=== PATIENT | female | born 1935 | race Caucasian/White ===

== ENCOUNTER 2020-07-12 21:29 | Inpatient (IN) | payer MEDICAID, SELFPAY ==
[~2020-07-12] VITALS: Ht 152.4 cm; Wt 54.4 kg
[2020-07-12 21:58] VITALS: BP 119/88
--- NOTE | 2020-07-12 22:02 | NUR ---
TO LOBBY A/W BED VIA W/C
--- NOTE | 2020-07-12 22:20 | NUR ---
85 Y/O FEMALE BIB DAUGHTER IN LAW VIA W/C ASSIST FOR C/O "BLISTERS" ON BUTTOCKS, SACRAL, R & L FOOTS. ON ASSESMENT PT WAS NOTED WITH MULTIPLE PRESSURE SORES ON BUTTOCKS, SACRAL, R & L FOOTS, PICTURES WERE TAKEN REFER TO WOUND DOCUMENTATION. PER FABIAN NGUYEN SCALE PAIN 6/10. FACIAL GRIMACE NOTED ON MOVEMENT. UNABLE TO AMBULATE. PT PLACED ON BED WITH EMT RAI. BED LOCKED AND IN LOWEST POSITION. PMHX: OSTEOPOROSIS & R HIP FRACTURE 1 YEAR AGO. NKA PER DAUGHTER IN LAW
--- NOTE | 2020-07-12 23:00 | NUR ---
WOUND CARE COMPLETED. APPLIED DRESSINGS TO ALL AREAS.
[2020-07-13] MEDS ORDERED: MORPHINE SULFATE 2 MG/ML SYR IVP ONE (00:05)
[2020-07-13] MEDS ORDERED: ONDANSETRON 4 MG/2 ML VIAL IVP ONE (00:05)
[2020-07-13] MEDS ORDERED: NACL 0.9% 1,000 ML IV ONE ×2 (00:05→03:00)
[2020-07-13] MEDS ORDERED: CLINDAMYCIN 300 MG in DEXTROSE 5% 50 ML IV ONE (00:05)
[2020-07-13] MEDS ORDERED: CLINDAMYCIN 600 MG/4 ML VIAL ONE (00:18)
--- NOTE | 2020-07-13 00:28 | NUR ---
.LAB AT BEDSIDE FOR BLOOD DRAW
--- NOTE | 2020-07-13 00:30 | NUR ---
24 G IV SITE ESTABLISHED TO L HAND, SITE WAS PATENT FLUSHED WITH 10 ML OF 0.9% NS. NO INFILTARTION OR SWELLING NOTED.
[2020-07-13 00:31] LABS: HEMATOCRIT 39.8 % (36-48); HEMOGLOBIN 12.7 g/dL (12.0-16.0); MEAN CORPUSCULAR HEMOGLOBIN 28 pg (27-31); MEAN CORPUSCULAR HGB CONC 32 g/dL (33-37); MEAN CORPUSCULAR VOLUME 88.4 fL (80-94); PLATELET COUNT (AUTO) 329 K/uL (140-450); RED CELL DISTRIBUTION WIDTH 14.9 % (11.6-13.7); WHITE BLOOD COUNT (AUTO) 22.7 K/uL (4.8-10.8)
[2020-07-13 00:51] LABS: ALBUMIN 2.8 g/dL (3.4-5.0); ANION GAP 9.6 (8-16); ASPARTATE AMINOTRANSFERASE 19 U/L (15-37); CARBON DIOXIDE 28.6 mmol/L (21-32); CHLORIDE 107 mmol/L (98-107); GLUCOSE 118 mg/dL (74-106); POTASSIUM 4.2 mmol/L (3.5-5.1); SODIUM SERUM 141 mmol/L (136-145); TOTAL BILIRUBIN 0.5 mg/dL (0.0-1.0); UREA NITROGEN, BLOOD 20 mg/dL (7-18)
--- NOTE | 2020-07-13 01:12 | NUR ---
RECEIVED CONTACT INFO FROM DAUGHTER IN LAW (EMILY GUEVARA) , ROSEY GUEVARA (DAUGHTER) PER DAUGHTER IN LAW BEST PERSON TO CONTACT. SON (CADE GUEVARA) . DAUGHTER IN LAW TOOK PT'S W/C, BLANKETS AND DRESS. DENTURES LEFT WITH PATIENT.
[2020-07-13 01:17] LABS: LYMPHOCYTES % (MANUAL) 6 % (20-46); MONOCYTES % (MANUAL) 4 % (5-12)
[2020-07-13] MEDS ORDERED: NACL 0.9% 500 ML IV ONE ×2 (01:35→02:45)
[2020-07-13] MEDS ORDERED: VANCOMYCIN 1,000 MG in DEXTROSE 5% 250 ML IV ONE (01:35)
--- NOTE | 2020-07-13 02:15 | NUR ---
PT LAYING IN BED IN NO ACUTE DISTRESS NOTED. BREATHING EVEN AND UNLABORED EVIDENCE BY RISE AND FALL OF CHEST WALL. ON CARDIAC MONITORING, BP MONITORING, AND PULSE OXIMETRY. BED LOCKED AND IN LOWEST POSITION.
[2020-07-13] MEDS ORDERED: VANCOMYCIN 1,000 MG VIAL ONE (02:49)
[2020-07-13] MEDS ORDERED: NACL 0.9% 1,000 ML IV SCH ×2 (03:00→07:30)
--- NOTE | 2020-07-13 03:11 | NUR ---
LAURE ANTIGEN SWAB COLLECTED AND SENT LAB.
--- NOTE | 2020-07-13 04:35 | NUR ---
PT PERINEAL CARE DONE, SKIN WAS LEFT CLEAN AND DRY. CHANGED PT BRIEF, SHEETS AND GOWN. PROVIDED NEW BLANKETS AND ADJUSTED HOB TO A COMFORTABLE POSITION.
--- NOTE | 2020-07-13 06:45 | NUR ---
CALLED ROSEY GUEVARA TO OBTAIN CURRENT HOME MED RECORD. NO ANSWER AT THIS TIME VOICEMAIL LEFT.
--- NOTE | 2020-07-13 06:50 | NUR ---
LAB A BEDSIDE FOR BLOOD DRAW.
--- NOTE | 2020-07-13 07:00 | NUR ---
PT LAYING IN BED IN NO ACUTE DISTRESS NOTED. BREATHING EVEN AND UNLABORED EVIDENCE BY RISE AND FALL OF CHEST WALL. PERINEAL CARE DONE SKIN WAS LEFT CLEAN AND DRY. REPOSITION PATIENT TO LT SIDE. IVF OF 0.9% RUNNING AT 126ML/HR. ON CARDIAC MONITORING, BP MONITORING, AND PULSE OXIMETRY. BED LOCKED AND IN LOWEST POSITION.
--- NOTE | 2020-07-13 07:17 | NUR ---
Report received from CHELO Bolton from power and recovery shift engineer for continuity of care
--- NOTE | 2020-07-13 07:24 | NUR ---
REPORT GIVEN TO LUCÍA WHITNEY FOR CONTINUITY OF CARE.
--- NOTE | 2020-07-13 07:27 | NUR ---
REPORT GIVEN TO CHELO DYE. TRANSFER OF CARE AT THIS TIME.
[2020-07-13] MEDS ORDERED: DOCUSATE SODIUM 100 MG GELCAP PO PRN (07:30)
[2020-07-13] MEDS ORDERED: HYDROcodone/APAP 7.5/325 MG 1 TAB PO PRN (07:30)
[2020-07-13] MEDS ORDERED: guaiFENesin DM 200/20 MG-10 ML 10 ML UDC PO PRN (07:30)
[2020-07-13] MEDS ORDERED: ZOLPIDEM 5 MG TAB PO PRN (07:30)
[2020-07-13] MEDS ORDERED: POTASSIUM CHLORIDE 40 MEQ, LIDOCAINE MPF 1% 25 MG in NACL 0.9% 250 ML IV PRN (07:30)
[2020-07-13] MEDS ORDERED: ACETAMINOPHEN 325 MG TAB PO PRN (07:30)
[2020-07-13] MEDS ORDERED: ONDANSETRON 4 MG/2 ML VIAL IM/IVP PRN (07:30)
[2020-07-13] MEDS ORDERED: VANCOMYCIN PER PHARMACY MC PRN (07:35)
--- NOTE | 2020-07-13 07:47 | NUR ---
BIBF from home with c/o multiple decubitus ulcers, sacral right ankle and left buttocks. A, A O x zero. Does not speak, non-verbal, attempted response in Honduran and [place] African. Severe limb contractures, positioned in the position, unable to straighten patient. Placed pillows and bed position for pressure relief and comfort. IV #24g left hand with NS @ 126cc/hr at this time photographic engineer in place, sinus rhythm, VVS, in NAD HOB elevated, no movement or straightening of exts Resp even and unlabored, O2 sat 97-99% on room air Will continue to monitor
--- NOTE | 2020-07-13 07:56 | NUR ---
Patient transfered via gurney to CT scan abdomen with radiology attendant
--- NOTE | 2020-07-13 08:07 | NUR ---
Patient returned from radiology, tolerated well
[2020-07-13 08:25] LABS: PROTHROMBIN TIME 9.8 secs (10.8-13.4)
--- NOTE | 2020-07-13 08:25 | NUR ---
IVF changed to NS @ 60cc/hr via #24g left hand IV
[2020-07-13 08:58] LABS: CHOL/HDL RATIO 3.4 (1-4.5); FREE T4 (FREE THYROXINE) 1.55 ng/dL (0.76-1.46); MAGNESIUM 1.9 mg/dL (1.8-2.4); PHOSPHORUS 2.5 mg/dL (2.5-4.9); THYROID STIMULATING HORMONE 0.68 uIU/mL (0.34-3.74)
[2020-07-13] MEDS: PANTOPRAZOLE 40 MG TABEC PO SCH (09:00)
--- NOTE | 2020-07-13 09:33 | NUR ---
Patient pulled up and positioned, patient in position with severe limb contractures. Unable to give Protonix PO due to inability to swallow or allow pill crushing, will ask MD for Protonix IV order
[2020-07-13] MEDS: LEVOFLOXACIN 750 MG/D5W PREMIX 150 ML IV SCH (09:40)
--- NOTE | 2020-07-13 12:48 | NUR ---
Patient straight cathed for urine sample. No urine output, will leave bag and see if patient voids, had just beed incontinent of urine into diaper
--- NOTE | 2020-07-13 13:35 | NUR ---
Patient's IV was pulled out when she was turned, repositioned and cleaned. Manual pressure held, cannula intact. Will restart
--- NOTE | 2020-07-13 14:04 | NUR ---
SOCIAL WORK NOTE: Patient's Orientation Unable To Assess Information Provided By EMILY GREG - [id number] Comments SW WAS UNABLE TO MEET PATIENT AT BEDSIDE. SW COMPLETED ASSESSMENT WITH PATIENT'S [id number]. Station Repairer, Realtionship and Phone Number EMILY GARZA [id number] [phone] [facility] Power of Supervisor Photocomposition No Does Patient Have a POLST No Identifying Problems No Social Work Triggers Is A Social Work Consult Needed No Mandate Report Filed No Explanation Of Identifying Problems PATIENT IS AN 85-YEAR-OLD PATIENT ADMITTED FOR [facility]. PATIENT HAS PMHX OF PARKINSON'S AND OSTEOPOROSIS. PER [id number], PATIENT LIVES AT TWO [facility]. [address] [place] [address] [address] [place] [address]. Admitted From Home Pre-Admission Level Of Functioning Status Total Care Level Of Functioning Comment PER DAUGHTER, PATIENT REQUIRES TOTAL ASSISTANCE WITH ADLS AND EXTENDED FAMILY SUPPORTS PATIENT. Prior Resources/Services Used In Last 12 Months No Prior Resources Used Prior DME No Prior DME Used Wheelchair Dialysis Comments N/A Living Situation Lives With Family Other Living Situation/Comment PATIENT LIVES BETWEEN TWO HOMES. Patient Had Caregiver No Home Support CG/Fam Able To Meet Need Financial Issues No Known Financial Issue Referral To The Financial Counselor Needed No Factors/Needs No D/C Needs Identified Pt/Rep Participated In Discharge Plan Yes Patient/Family Agress With Discharge Plan Yes Discharge Plan Comments TENTATIVE DISCHARGE PLAN IS FOR PATIENT TO RETURN HOME. DC Plan Status Initiated
--- NOTE | 2020-07-13 15:15 | NUR ---
IV restarted #22g right hand, flushed, IVF restarted @ 60cc/hr Patient tolerated well
--- NOTE | 2020-07-13 16:27 | NUR ---
Detailed report called to CHELO Raoms for 110-B. Questions answered, orders and meds reviewed.
--- NOTE | 2020-07-13 16:40 | NUR ---
Patient transfered to room 110-B via gurney with RN, EMT and school bus monitor. Patient placed in 110-B and connected to tele monitor, CHELO Schwartz at bedside to assume care
[2020-07-13 16:57] LABS: BILIRUBIN,URINE NEGATIVE (NEGATIVE); BLOOD, URINE TRACE-L (NEGATIVE); COLOR,URINE YELLOW (YELLOW); LEUKOCYTE ESTERASE ,URINE NEGATIVE (NEGATIVE); NITRITE, URINE NEGATIVE (NEGATIVE); UGLUCOSE NEGATIVE (NEGATIVE)
[2020-07-13 17:00] VITALS: BP 140/92
--- NOTE | 2020-07-13 17:00 | NUR ---
RECEIVED PT FROM ED NURSE. PT RESTING IN BED. FLACC 0. RESPIRATIONS EVEN AND UNLABORED WITH NO SOB OR RESPIRATORY DISTRESS. SKIN WARM AND DRY TO TOUCH. IV SITE IN R HAND 22G IS CLEAN, DRY, AND INTACT. MRSA SWAB COLLECTED. SAFETY MEASURES IN PLACE. WILL CONTINUE TO MONITOR
[2020-07-13 17:30] LABS: BARBITURATE, URINE NEGATIVE ng/ml (NEG <=200); BENZODIAZEPINE, URINE NEGATIVE ng/mL (NEG <=200); CANNABINOID, URINE NEGATIVE ng/mL (NEG <=50); COCAINE, URINE NEGATIVE ng/mL (NEG <=300); OPIATE, URINE POSITIVE ng/mL (NEG <=2000); PHENCYCLIDINE SCREEN,URINE NEGATIVE ng/mL (NEG <=25)
[2020-07-13] MEDS: POTASSIUM CHL 20 MEQ/D5-1/2NS 1,000 ML IV SCH (17:43)
--- NOTE | 2020-07-13 17:55 | NUR ---
ADMINISTERED SCHED MED PRESCRIBED PER MD ORDER. PT TOLERATED WELL. MEDICATION EDUCATION PERFORMED. PT UNABLE TO VERBALIZE UNDERSTANDING. SAFETY MEASURES IN PLACE. WILL CONTINUE TO MONITOR
[2020-07-13 19:10] LABS: APPEARANCE,URINE CLEAR (CLEAR)
[2020-07-13 19:11] LABS: RBC,URINE 0-5 /HPF (0-5); WBC,URINE 0-5 /HPF (0-5)
--- NOTE | 2020-07-13 19:25 | NUR ---
ENDORSED AT BEDSIDE FOR CONTINUITY OF CARE. PT IS STABLE
--- NOTE | 2020-07-13 19:30 | NUR ---
RECEIVED BEDSIDE REPORT FROM DAY SHIFT NURSE FOR CONTINUITY OF CARE. PT IS AWAKE, LAYING IN BED. PT IS LAO SPEAKING AND DOES NOT RESPOND APPROPRIATELY. ON RA WITH BREATHING UNLABORED. CHEST RISE AND FALL SYMMETRICAL. DIAPER IN PLACE, DRY. SKIN IS WARM AND DRY. SKIN IS NOT INTACT. WOUNDS ON THE RIGHT HEEL, SACRAL REGION, AND LEFT HIP. IV IS IN THE RIGHT HAND 22 GAUGE RUNNING HALF NS KCL 20 MEQ AT 75 ML PER HOUR PER ORDER. PLAN OF CARE DISCUSSED. PT IS STABLE AT THIS TIME. NO DISTRESS NOTED.
[2020-07-13 20:00] VITALS: BP 122/66
--- NOTE | 2020-07-13 21:30 | NUR ---
PT IS ASLEEP IN SEMI FOWLERS POSITION. NO DISTRESS OR PAIN NOTED. FLACC 0. DRY DIAPER IN PLACE. PT WAS REPOSITIONED PER PROTOCOL.
--- NOTE | 2020-07-13 23:00 | NUR ---
SPOKE TO EMILY, DAUGHTER IN LAW, AND INFORMED HER ABOUT THE STATUS OF THE PT. ALSO ASKED HER QUESTIONS ABOUT THE HISTORY OF THE PATIENT. EMILY TAKES CARE OF THE PATIENT AT HOME AND WAS ABLE TO ANSWER MY QUESTIONS IN FULL FOR THE ADMISSION ASSESSMENT. PT IS INCOMPREHENSIBLE AND MUMBLES. PT IS A&OX0 AND UNRELIABLE SOURCE A HISTORIAN.
--- NOTE | 2020-07-13 23:00 | NUR ---
PT WAS CHANGED AND REPOSITIONED. WOUNDS WERE ASSESSED. PT HAS MULTIPLE OPEN PRESSURE ULCERS. LEFT BUTTOCK HAS A WOUND THAT APPEARS TO BE HEALING, PINK AT THE WOUND BED WITH NO DRAINAGE. TWO OPEN WOUNDS ON THE LEFT HIP, PINK AND WHITE AT THE BED WITH MINIMAL DRAINAGE. SACRAL WOUND WITH NECROTIC TISSUE WITH MINIMAL DRAINAGE. LEFT FOOT HAS TWO OPEN WOUNDS, RED AT THE WOUND BED WITH MINIMAL DRAINAGE. AN OPEN WOUND AT THE RIGHT HEEL WITH A RED WOUND BED AND MINIMAL DRAINAGE. ALL WOUND DRESSINGS WERE CLEANSED WITH NS AND PATTED DRY. DRESSINGS WERE PLACED ON ALL WOUNDS. PT APPEARED TO BE IN SOME PAIN WHEN CLEANSING THE WOUND. PT IS NOW RESTING COMFORTABLY. PILLOWS WERE PLACED TO OFFSET PRESSURE.
[2020-07-14] VITALS: BP 122/66
--- NOTE | 2020-07-14 01:00 | NUR ---
ROUNDED ON PT. SHE IS SLEEPING. BLANKETS IN PLACE FOR COMFORT. PT IS NPO AFTER MIDNIGHT FOR POSSIBLE DEBRIDEMENT OF THE WOUND. PT IS STABLE AT THIS TIME.
--- NOTE | 2020-07-14 03:00 | NUR ---
MADE ROUNDS ON PT. SHE IS SLEEPING WITH NO DISTRESS NOTED. PATIENT DOESN'T APPEAR TO BE IN PAIN. PT WAS REPOSITIONED AND SOILED DIAPER WAS CHANGED. WOUND BANDAGES WERE STILL INTACT AND DIDN'T NEED TO BE CHANGED. NO DRAINAGE NOTED ON BANDAGE.
[2020-07-14 04:00] VITALS: BP 116/66
--- NOTE | 2020-07-14 05:00 | NUR ---
PT WAS CHANGED AND REPOSITIONED. ROTATED TO THE OTHER SIDE. BLANKET WAS PROVIDED FOR COMFORT. PT IS STILL NPO FOR POSSIBLE DEBRIDEMENT TODAY. IV FLUIDS ARE PATENT AND INFUSING.
[2020-07-14] MEDS: POTASSIUM CHL 20 MEQ/D5-1/2NS 1,000 ML IV SCH ×2 (06:12→19:15)
--- NOTE | 2020-07-14 07:05 | NUR ---
ENDORSED PT TO DAY SHIFT NURSE FOR CONTINUITY OF CARE. PT IS STABLE AT THIS TIME. PLAN OF CARE DISCUSSED.
--- NOTE | 2020-07-14 07:33 | NUR ---
SPOKE TO [employer] AND SHE VERIFIED THAT SHE VALENTINO THE LAB FOR TAM TRUJILLO.
--- NOTE | 2020-07-14 07:35 | NUR ---
RECEIVED REPORT FROM NIGHT NURSE PATIENT IS SLEEPING, ON ROOM AIR, NPO AFTER MIDNIGHT, INCONTINENT, IV SITES ON RIGHT HAND INTACT. SKIN NON INTACT, FOR DEBRIDEMENT SACROCOCCYX DECUBITUS WOUND. SAFETY MEASURES IN PLACE AND CALL LIGHT WITHIN REACH. WILL CONTINUE TO MONITOR.
[2020-07-14 08:00] VITALS: BP 146/70
[2020-07-14] MEDS: PANTOPRAZOLE 40 MG TABEC PO SCH (09:00)
--- NOTE | 2020-07-14 09:00 | NUR ---
MEDICATION NOT GIVEN PATIENT IS NPO FOR DEBRIDEMENT SACROCOCYX DECUBITUS WOUND.
--- NOTE | 2020-07-14 09:05 | NUR ---
CONSENT FOR DEBRIDEMENT SACROCOCCYX DECUBITUS WOUND GIVEN BY DAUGHTER DEEPAK GUEVARA THROUGH TELEPHONE CONSENT
--- NOTE | 2020-07-14 10:22 | NUR ---
PATIENT OUT IN HER ROOM FOR THE PROCEDURE, PT IS STABLE
[2020-07-14] MEDS ORDERED: BUPIVACAINE-MPF/EPI 0.5% 30 ML VIAL INJ ONE (11:04)
[2020-07-14] MEDS ORDERED: fentaNYL citrate 0.05 MG/ML VIAL ONE (11:15)
[2020-07-14] MEDS ORDERED: MIDAZOLAM 2 MG/2 ML VIAL ONE (11:15)
[2020-07-14] MEDS ORDERED: ONDANSETRON 4 MG/2 ML VIAL IVP PRN (11:45)
[2020-07-14] MEDS ORDERED: MEPERIDINE 25 MG/ML SYR IVP PRN (11:45)
[2020-07-14] MEDS ORDERED: LACTATED RINGERS 1,000 ML IV SCH (11:45)
[2020-07-14] MEDS ORDERED: diphenhydrAMINE 50 MG/ML VIAL IVP PRN (11:45)
[2020-07-14] MEDS ORDERED: BLOOD GLUCOSE MONITORING 1 DEV DEV FS ONE (11:45)
[2020-07-14] MEDS ORDERED: HYDROmorphone 1 MG/ML AMP IVP PRN (11:45)
[2020-07-14 12:00] VITALS: BP 116/54
--- NOTE | 2020-07-14 12:33 | NUR ---
PATIENT BACK IN HER ROOM VITAL SIGNS TAKEN BP 146/70 AZ 81 RR 20 TEMP 97.6 OXYGEN SAT 95. PATIENT IS STABLE
--- NOTE | 2020-07-14 13:00 | NUR ---
BLOOD SUGAR TAKEN 137 MG/DL NO INSULIN COVERAGE
[2020-07-14 13:07] LABS: BASOPHILS % (AUTO) 0.2 % (0.0-2.0); EOSINOPHILS # (AUTO) 0.1 K/uL (0-0.4); EOSINOPHILS % (AUTO) 0.5 % (0.0-4.0); HEMATOCRIT 30.6 % (36-48); HEMOGLOBIN 9.9 g/dL (12.0-16.0); LYMPHOCYTES % (AUTO) 7.8 % (20.5-51.1); MEAN CORPUSCULAR HEMOGLOBIN 29 pg (27-31); MEAN CORPUSCULAR HGB CONC 32 g/dL (33-37); MEAN CORPUSCULAR VOLUME 88.7 fL (80-94); MONOCYTES % (AUTO) 7.4 % (1.7-9.3); NEUTROPHILS # (AUTO) 11.4 K/uL (1.8-7.7); NEUTROPHILS % (AUTO) 84.1 % (42.2-75.2); PLATELET COUNT (AUTO) 244 K/uL (140-450); RED BLOOD CELL COUNT(AUTO) 3.45 MIL/uL (4.20-5.40); RED CELL DISTRIBUTION WIDTH 15.1 % (11.6-13.7); WHITE BLOOD COUNT (AUTO) 13.5 K/uL (4.8-10.8)
[2020-07-14 13:26] LABS: ANION GAP 7.4 (8-16); CARBON DIOXIDE 27.7 mmol/L (21-32); CHLORIDE 107 mmol/L (98-107); CREATININE 0.7 mg/dL (0.6-1.3); GLUCOSE 348 mg/dL (74-106); POTASSIUM 5.1 mmol/L (3.5-5.1); SODIUM SERUM 137 mmol/L (136-145); UREA NITROGEN, BLOOD 10 mg/dL (7-18)
--- NOTE | 2020-07-14 15:30 | NUR ---
MEDICATION DUE GIVEN PATIENT IS SLEEPING AND STABLE.
[2020-07-14] MEDS: VANCOMYCIN 500 MG in DEXTROSE 5% 100 ML IV SCH (15:39)
[2020-07-14 16:00] VITALS: BP 124/73
--- NOTE | 2020-07-14 19:18 | NUR ---
ENDORSED TO NIGHT NURSE FOR CONTINUITY OF CARE. PT IS STABLE
--- NOTE | 2020-07-14 19:20 | NUR ---
RECEIVED BEDSIDE REPORT FROM DAY SHIFT NURSE FOR CONTINUITY OF CARE. PT IS ASLEEP IN SEMI FOWLERS POSITION. PT WAS AWOKEN BY LIGHT SHAKING. MUMBLES IN [place]. ON RA WITH BREATHING UNLABORED. SR ON TELE MONITORING. DIAPER IN PLACE, DRY. PT IS INCONTINENT. OPEN WOUNDS ON THE LEFT BUTTOCK, SACRAL REGION, TWO ON THE LEFT FOOT, RIGHT FOOT, AND TWO ON THE LEFT HIP. SKIN IS WARM AND DRY. IV IS IN THE RIGHT HAND 22 GAUGE RUNNING D5 HALF NS KCL 20 MEQ AT 75 ML PER HOUR. POTASSIUM LEVEL 5.1 FROM THE MORNING LABS, WILL SPEAK TO DOCTOR ABOUT POSSIBLY CHANGING FLUIDS. PT IS S/P DEBRIDEMENT OF THE SACRAL COCCYX WOUND. PLAN OF CARE DISCUSSED. PT IS STABLE AT THIS TIME.
[2020-07-14 20:00] VITALS: BP 141/78
--- NOTE | 2020-07-14 21:23 | NUR ---
TEXTED DR. CARDENAS TO INFORM HIM ABOUT THE POTASSIUM LEVEL OF 5.1 THIS MORNING. ALSO INFORMED HIM THAT THE FLUIDS ARE D5 HALF NS KCL 20 MEQ AT 75 ML/ HR, PT REFUSES TO EAT, AND NA IS 137. INFORMED HIM THAT THE ORDER WAS PLACED BY DR. FABIAN. DR. CARDENAS IS TO CHECK FOR THE REASON WHY THE FLUIDS WERE ORDERED AND WE WILL MONITOR LAB DRAW IN THE AM FOR THE POTASSIUM LEVEL. WAS INFORMED TO CONTINUE FLUIDS UNTIL LAB RESULTS.
--- NOTE | 2020-07-14 21:30 | NUR ---
PT WAS CHANGED AND REPOSITIONED. WOUND DRESSING WAS ASSESSED AND ARE STILL INTACT WITH MINIMAL DRAINAGE. WILL CHANGE DRESSING NEXT TIME PT IS CHANGED. PT APPEARS TO BE IN PAIN WHEN REPOSITIONED R/T WOUNDS. BLANKETS WERE PROVIDED FOR COMFORT. ATTEMPTED TO FEED PT DINNER BUT PT REFUSED BY CLOSING MOUTH TIGHTLY. TRIED TO GIVE PATIENT WATER AND ENSURE, PT ALSO REFUSED. DOCTOR WAS NOTIFIED ABOUT PT'S REFUSAL TO EAT.
--- NOTE | 2020-07-14 23:30 | NUR ---
PT WAS REPOSITIONED AND DIAPER WAS DRY. PT WAS NOT CHANGED. PILLOWS WERE USED TO PROP UP FEET FROM THE BED AND OFFSET PRESSURE ON THE SACRAL COCCYX REGION. PT APPEARED TO BE IN SOME PAIN DURING CHANGING BUT NO LONGER APPEARED TO BE IN PAIN AFTER THE CHANGING. PT IS STABLE AND WAS COVERED WITH BLANKETS. IV FLUIDS ARE PATENT AND INFUSING.
[2020-07-15] VITALS: BP 135/86
--- NOTE | 2020-07-15 01:00 | NUR ---
PT WAS REPOSITIONED. DRESSINGS WERE SOILED AND WERE CHANGED. OPEN WOUNDS ON THE RIGHT FOOT X2, LEFT FOOD, SACRAL REGION, LEFT HIP/ BUTTOCK X 3. SACRAL DRESSING WAS NOT CHANGED PER DR. BAE ORDER OF DRESSING CHANGE ON POD #1. OTHER WOUNDS WERE CLEANSED WITH NS AND PATTED DRY. NEW DRESSINGS WERE APPLIED. REDNESS AROUND THE WOUNDS SEEMS TO BE IMPROVING FROM THE PREVIOUS SHIFT.
--- NOTE | 2020-07-15 03:00 | NUR ---
DIAPER WAS WET, PT VOIDED. IT WAS CHANGED AND LINENS WERE CHANGED WELL. PT WAS REPOSITIONED. SHE TOLERATED THE REPOSITIONING WELL.
[2020-07-15 04:00] VITALS: BP 95/54
--- NOTE | 2020-07-15 04:23 | NUR ---
ROUNDED ON PT. NO DISTRESS OR PAIN NOTED. LAYING COMFORTABLY IN SEMI FOWLERS POSITION WITH PILLOWS IN PLACE. IV FLUIDS ARE INFUSING. WILL CONTINUE TO MONITOR.
--- NOTE | 2020-07-15 05:49 | NUR ---
PT VOIDED AND DIAPER WAS CHANGED. PT WAS REPOSITIONED. PILLOWS IN PLACE TO ELEVATE FEET OFF THE BED. PILLOWS TO OFFLOAD PRESSURE OFF THE BACK. PT TOLERATING CHANGING WELL.
--- NOTE | 2020-07-15 07:20 | NUR ---
ENDORSED PT TO DAY SHIFT NURSE FOR CONTINUITY OF CARE. PT IS STABLE AT THIS TIME. ENDORSED INFORMATION ABOUT FLUIDS TO DAY SHIFT NURSE AND TO CONTACT DR. CARDENAS WITH LAB RESULTS FOR POTASSIUM. PLAN OF CARE DISCUSSED.
--- NOTE | 2020-07-15 07:22 | NUR ---
RECEIVED REPORT FROM NIGHT NURSE PATIENT IS SLEEPING, ON ROOM AIR, POOR APPETITE, INCONTINENT, BED BOUND SKIN NON INTACT, AAOX0, IV INTACT ON RIGHT HAND, SAFETY MEASURES IN PLACE AND CALL LIGHT WITHIN REACH. WILL CONTINUE TO MONITOR.
[2020-07-15] MEDS: POTASSIUM CHL 20 MEQ/D5-1/2NS 1,000 ML IV SCH (08:24)
[2020-07-15] MEDS: LEVOFLOXACIN 750 MG/D5W PREMIX 150 ML IV SCH (08:26)
[2020-07-15] MEDS: PANTOPRAZOLE 40 MG TABEC PO SCH (08:37)
--- NOTE | 2020-07-15 08:37 | NUR ---
MEDICATION DUE GIVEN, PATIENT REFUSED PANTOPRAZOLE ORAL AND REFUSED TO EAT.
[2020-07-15 09:40] LABS: ANION GAP 10.3 (8-16); CARBON DIOXIDE 24.1 mmol/L (21-32); CHLORIDE 107 mmol/L (98-107); CREATININE 0.5 mg/dL (0.6-1.3); GLUCOSE 115 mg/dL (74-106); POTASSIUM 4.4 mmol/L (3.5-5.1); SODIUM SERUM 137 mmol/L (136-145); UREA NITROGEN, BLOOD 6 mg/dL (7-18)
[2020-07-15 09:48] LABS: BASOPHILS # (AUTO) 0.1 K/uL (0.00-0.22); BASOPHILS % (AUTO) 0.4 % (0.0-2.0); EOSINOPHILS # (AUTO) 0.1 K/uL (0-0.4); EOSINOPHILS % (AUTO) 0.9 % (0.0-4.0); HEMATOCRIT 29.9 % (36-48); LYMPHOCYTES # (AUTO) 1.5 K/uL (2.5-16.5); LYMPHOCYTES % (AUTO) 10.1 % (20.5-51.1); MEAN CORPUSCULAR HEMOGLOBIN 29 pg (27-31); MEAN CORPUSCULAR HGB CONC 34 g/dL (33-37); MEAN CORPUSCULAR VOLUME 87.5 fL (80-94); MONOCYTES # (AUTO) 1.1 K/uL (0.8-1.0); MONOCYTES % (AUTO) 7.5 % (1.7-9.3); NEUTROPHILS # (AUTO) 12.3 K/uL (1.8-7.7); NEUTROPHILS % (AUTO) 81.1 % (42.2-75.2); PLATELET COUNT (AUTO) 217 K/uL (140-450); RED BLOOD CELL COUNT(AUTO) 3.41 MIL/uL (4.20-5.40); WHITE BLOOD COUNT (AUTO) 15.2 K/uL (4.8-10.8)
--- NOTE | 2020-07-15 11:09 | NUR ---
PATIENT HAS BEEN SCREENED AND CATEGORIZED HIGH NUTRITION RISK. PATIENT WILL BE SEEN WITHIN 1-2 DAYS OF ADMISSION. 07/14/20 - 07/15/20 MAURY GRACIA MBA, RD
--- NOTE | 2020-07-15 12:00 | NUR ---
PATIENT REFUSED EATING AND HAS NO APPETITE. DR DALEY AWARE
[2020-07-15 12:41] VITALS: BP 98/40
--- NOTE | 2020-07-15 13:00 | NUR ---
PATIENT IV CHANGE TO DEXTROSE 5% SODUIM CHLORIDE 0.9% AT 60 ML
--- NOTE | 2020-07-15 13:29 | NUR ---
07/15/20 RD INITIAL ASSESSMENT COMPLETED PLEASE REFER TO NUTRITION ASSESSMENT UNDER CARE ACTIVITY FOR ESTIMATED NUTRITIONAL NEEDS. RD RECOMMENDATIONS: 1. RECOMMEND CONTINUE REGULAR DIET 2. ADD HEALTHSHAKES TID WITH MEALS. 3. HONOR FOOD PREFERENCES AND ENCOURAGE INCREASED PO INTAKE. 4. RE-ASSESS PO INTAKE ON F/U. IF PT CONTINUES TO REFUSE FOOD, RE-DISCUSS WITH MD / CONSIDER TF A NUTRITIONAL SUPPORT ALTERNATIVE. 5. F/U 2-3 DAYS; HIGH RISK MAURY KEENE MBA, RD
[2020-07-15] MEDS: VANCOMYCIN 500 MG in DEXTROSE 5% 100 ML IV SCH (15:00)
[2020-07-15] MEDS: DEXT 5% /NACL 0.9% 1,000 ML IV SCH (15:20)
--- NOTE | 2020-07-15 15:34 | NUR ---
PATIENT IV OUT AND TAM UNABLE TO ADMINISTER. PHARMACY AWARE
[2020-07-15 16:00] VITALS: BP 105/73
--- NOTE | 2020-07-15 18:00 | NUR ---
INFORMED DR DALEY AND AGREED TO DO PICC LINE.
--- NOTE | 2020-07-15 18:53 | NUR ---
CONSENT FOR PICC LINE INSERTIPON GIVEN BY DAUGHTER IN LAW AND DAUGHTER AWARE OF THE PICC LINE INSERTION.
--- NOTE | 2020-07-15 19:37 | NUR ---
RECEIVED REPORT FROM IDA WHITNEY DAYSHIFT NURSE FOR CONTINUITY OF CARE, PT IN STABLE CONDITION.
--- NOTE | 2020-07-15 19:40 | NUR ---
ENDORSED TO NIGHT NURSE
[2020-07-15 20:00] VITALS: BP 135/81
--- NOTE | 2020-07-15 20:00 | NUR ---
PT IN BED RESTING WITH EYES CLOSED, NO S/S OF PAIN OR DISTRESS NOTED. PT WAS TURNED, CHANGED AND REPOSITIONED IN BED.
--- NOTE | 2020-07-15 22:00 | NUR ---
PICC LINE ORDER IN PLACE WILL FOLLOW UP W QUALITY ASSURANCE MONITOR CHASSIS. CONSENT SIGNED. SPOKE WITH EMILY DAUGHTER IN LAW AND UPDATED HER REGARDING PT CONDITION. SHE SPOKE WITH PT BRIEFLY OVER THE PHONE. ENCOURAGED PT TO DRINK HER ENSURE, SHE DRANK A FEW SWALLOWS THEN REFUSED ANY MORE. ALL ORDERED PRECAUTIONS IN PLACE.
--- NOTE | 2020-07-15 22:50 | NUR ---
Texted [facility] for PICC order, and called PICC RN ([phone])
[2020-07-16] VITALS (7 sets, daily range): BP systolic 92–125; BP diastolic 43–76
--- NOTE | 2020-07-16 | NUR ---
PT IN BED SHE WAS TURNED AND CHANGED AND REPOSITIONED. ALL FALLS PROTOCOL IN PLACE.
--- NOTE | 2020-07-16 04:00 | NUR ---
PT TURNED, CHANGED AND REPOSITIONED IN BED, WOUND CARE PROVIDED. ALL FALLS PROTOCOL IN PLACE.
[2020-07-16] MEDS: DEXT 5% /NACL 0.9% 1,000 ML IV SCH (05:00)
[2020-07-16 09:31] LABS: HEMATOCRIT 31.2 % (36-48); HEMOGLOBIN 10.2 g/dL (12.0-16.0); RED BLOOD CELL COUNT(AUTO) 3.55 MIL/uL (4.20-5.40); WHITE BLOOD COUNT (AUTO) 14.1 K/uL (4.8-10.8)
[2020-07-16 09:33] LABS: MEAN CORPUSCULAR HEMOGLOBIN 29 pg (27-31); MEAN CORPUSCULAR HGB CONC 33 g/dL (33-37); MEAN CORPUSCULAR VOLUME 87.9 fL (80-94)
[2020-07-16 09:34] LABS: BASOPHILS % (AUTO) 0.3 % (0.0-2.0); EOSINOPHILS # (AUTO) 0.1 K/uL (0-0.4); EOSINOPHILS % (AUTO) 0.5 % (0.0-4.0); LYMPHOCYTES # (AUTO) 1.4 K/uL (2.5-16.5); MONOCYTES # (AUTO) 1.3 K/uL (0.8-1.0); MONOCYTES % (AUTO) 9.1 % (1.7-9.3); NEUTROPHILS # (AUTO) 11.3 K/uL (1.8-7.7); NEUTROPHILS % (AUTO) 80.1 % (42.2-75.2); PLATELET COUNT (AUTO) 235 K/uL (140-450); RED CELL DISTRIBUTION WIDTH 14.9 % (11.6-13.7)
[2020-07-16 09:39] LABS: CARBON DIOXIDE 25.4 mmol/L (21-32); CHLORIDE 106 mmol/L (98-107); CREATININE 0.6 mg/dL (0.6-1.3); GLUCOSE 85 mg/dL (74-106); POTASSIUM 3.4 mmol/L (3.5-5.1); SODIUM SERUM 136 mmol/L (136-145); UREA NITROGEN, BLOOD 8 mg/dL (7-18)
[2020-07-16] MEDS: PANTOPRAZOLE 40 MG TABEC PO SCH (10:32)
--- NOTE | 2020-07-16 10:32 | NUR ---
PROTONIX CRUSHED AND MIXED WITH VANILLA PUDDING. PATIENT HAS VERY POOR ORAL INTAKE. NO ACUTE DISTRESS NOTED, O2 SAT 98% IN ROOM AIR. SAFETY MEASURES IN PLACE, WILL CONTINUE TO MONITOR.
--- NOTE | 2020-07-16 11:35 | NUR ---
REASON FOR EVALUATION: LOW CATRINA SCALE AND MULTIPLE WOUNDS SKIN ASSESSMENT DONE WITH THIS 85 Y/O PT ADMITTED TO [facility] WITH MULTIP PRESSURE INJURIES. PT HAD SACRAL I&D ON 07/14/2020. SKIN IS WARM AND MOIST, BLE HAIR NO GROWTH, NO EDEMA. DORSAL PEDAL PULSES PRESENT AND NORMAL. LONG THICKEN TOE NAILS X 10 TOES. HAMMER TOES TO RIGHT AND LEFT HALLUX. INCONTINENT OF BOWEL X1 DURING ASSESSMENT. PLAN OF CARE DISCUSSED WITH PRIMARY RN. INTEGUMENTARY: -LIPS AND ORAL MEMBRANE DRY AND CLEAN. SKIN INTACT. -UPPER ARMS CONTRACTURES WITH MULTIPLE ECCHYMOSIS/MULTIPLE PURPLE DISCOLORATION - PRESSURE INJURY UN-STAGEABLE LEFT TROCHANTER 2 SITES, SITES #1 3X2X0.1CM WOUND BED IS 100% YELLOW SLOUGH MOIST, NO ODOR, FERMIN WOUND SKIN MOIST, INTACT. SITE #2 2X2X0.1CM WOUND BED IS 100% YELLOW SLOUGH MOIST, NO ODOR, FERMIN WOUND SKIN MOIST, INTACT -PRESSURE INJURY STAGE 3, LEFT ISCHIUM 2X2X0.3CM, WOUND BED IS 100% GRANULATING TISSUE, MOIST, NO ODOR, FERMIN-WOUND SKIN MOIST SURROUNDING REDNESS INDICATED FURTHER DAMAGE - PRESSURE INJURY LEFT 1ST METATARSAL UN-STAGEABLE 2X2CM 100% YELLOW SLOUGH, WOUND BED MOIST, NO ODOR. FERMIN WOUND SKIN MOIST AND INTACT - PRESSURE INJURY S/P I&D STAGE 4 SACROCOCCYX [id number], WOUND BED 90 % YELLOW/ BROWN SLOUGH, 10% GRANULATING TISSUE, UNDERMINING 12-3 OCLOCK 1CM, 9-12 OCLOCK 2CM, IRREGULAR SHAPE, WOUND BED IS MOIST WITH MILD ODOR, FERMIN-WOUND SKIN ERYTHEMA, WITH SURROUNDING RED /PURPLE SKIN INDICATED FURTHER DAMAGE - PRESSURE INJURY RIGHT 1ST METATARSAL UN-STAGEABLE 2X2CM 100% YELLOW SLOUGH, WOUND BED MOIST, NO ODOR. FERMIN WOUND SKIN MOIST AND INTACT -PRESSURE INJURY STAGE 3, RIGHT HEEL TO FERMIN ANKLE 8X6X0.2CM WOUND BED 100% GRANULATING TISSUE, FERMIN-WOUND SKIN MOIST SURROUNDING REDNESS INDICATED FURTHER DAMAGE - PRESSURE INJURY RIGHT TROCHANTER 2 SITES, SITES #1 DTI 1X3CM WOUND BED IS 100% BLOODY BLISTER, SKIN INTACT, NO ODOR, FERMIN WOUND SKIN MOIST, INTACT. SITE #2 HEALING SCAR 2X2CM WOUND BED IS 100% PALE PINK, NO ODOR, FERMIN WOUND SKIN MOIST, INTACT RECOMMENDATIONS: -APPLY THIN LAYER OF HYDRAGUARD TO R/L UPPER ARMS BID AND PRN IF SOILING -CLEANSE SACRALCOCCYX WOUND WITH WOUND CARE KELVIN. PAT DRY, PACK WITH ALGINATE DRESSING, AND COVER WITH COMPOSITE DRESSING QD AND PRN IF SOILING -CLEANSE LEFT AND RIGHT HALLUX AND LEFT HIP, LEFT ISCHIUM, RIGHT HEEL MULTIPLE PRESSURE INJURIES, WITH WOUND CLEANSING SOLUTION AND APPLY THEROHONEY COVER WITH COMPOSITE DRESSING QD AND PRN IF SOILING -APPLY FOAM DRESSING RIGHT TROCHANTER 2 SITES CHANGE Q3 DAYS AND PRN IF SOILING. -APPLY HEEL PROTECTORS TO BOTH HEELS AT ALL TIMES -OFFLOAD BILATERAL HEELS BY PLACING PILLOWS UNDER CALVES UNLESS OTHERWISE CONTRAINDICATED -PRESSURE REDISTRIBUTION SURFACE THERAPY -TURN AND REPOSITION Q2H, OFFLOAD SACRALCOCCYX AND BUTTOCKS BY TURNING RIGHT AND LEFT -CONTINUE TO FOLLOW RD RECOMMENDATIONS ALL ABOVE RECOMMENDATIONS DISCUSSED WITH PRIMARY RN. PLEASE CONTACT WOUND CARE NURSE FOR ANY QUESTION AND CHANGE OF WOUND CONDITION
--- NOTE | 2020-07-16 12:03 | NUR ---
*ST: Bedside Swallow Evaluation* Pt is 85 yo F admitted from home c family 07/13/2020 c worsening sacral pressure ulcers. PMHx Parkinsons dz, osteoporosis, mostly bed-bound. Per phone call to pts dtr-in-law, Izabel, pt requires feeding assistance with Soft solids and had a very good appetite, forgetting that she ate a full meal and frequently telling visitors, I havent eaten since yesterday. Per dtr-in-law, Pt eats Soft/Thin Liquids and typically holds a cup while sipping out of a straw. Examples of soft solids include flour tortilla and eggs, arroz con leche, bread, pudding, mashed potatoes, cookies but NOT chicken soup (per Pt preference). Pts dtr-in-law did state that family is not inclined to Pt having a feeding tube at this time as Pt typically eats very well without overt difficulty prior to 1wk infection. Dtr-in-law also reports Pt does not take medications for Parkinsons with family recently crushing and mixing medications with liquids for Pt to ingest. CXR 07/13 - no acute cardiopulmonary disease. Cleared with RN, Desirae, for bedside swallow evaluation. Per RN, pt has been declining PO medications and foods. Noted per EMR, Pt did drink some Ensure with RN with audio-verbal cuing from Pts dtr-in-law (Izabel) via phone done with Pt yesterday. Pt seen bedside, on room air, sidelying on her L. Pt moaned, Me duele (painful) when HOB adjusted to close to 60 degrees. Various items from Regular/Thin Liquids tray offered. Vanilla pudding by tsp x6 given with pt stripping boli from tsp, no anterior spillage, no residue, and no overt coughing nor throat clearing observed. Vanilla nutritional shake by straw attempted x5 with pt not sipping from straw. Tsp trial attempted x3 with shake spilling from oral cavity with Pt not sipping from tsp. Unsure if this is 2/2 weakness or Pt not wanting to drink the shake. Canned pears x2 by tsp, canned peaches x2 by tsp, and thai toast 1/2 tsp pieces x2 given by ARCHIVES DIRECTOR. Pt would open mouth to receive soft boli but use her R hand to take out the soft solids. Pt did masticate thai toast pieces for ~1 minute prior to using her R hand to take out the thai toast. When asked if Pt wanted to eat anything, Pt replied, No. Incomplete bedside swallow evaluation at this time. However, given Pts history from dtr, clear CXR, and limited acceptance of vanilla pudding and Ensure from EMR notes with nsg, recommend continue presenting Soft/Thin Liquids diet to Pt with feeding assistance. Pt may not be having consistent PO intake at this time 2/2 acute infectious process and pain. P: Rec Soft/Thin Liquids by straw, 1:1 feeding assistance (Pt responds to Panamanian) Nsg to monitor and notify ARCHIVES DIRECTOR of changes in status -Nancy Castorena MA, ANAMIKA-ARCHIVES DIRECTOR Addendum: 07/16/20 at [address] Amended: Links added.
[2020-07-16] MEDS ORDERED: AMOX-1000 PO (14:18)
[2020-07-16] MEDS: VANCOMYCIN 500 MG in DEXTROSE 5% 100 ML IV SCH (15:00)
--- NOTE | 2020-07-16 19:20 | NUR ---
ENDORSED PATIENT TO COLLEGE RECRUITER RN FOR CONTINUITY OF CARE. PATIENT IN STABLE CONDITION.
--- NOTE | 2020-07-16 19:21 | NUR ---
RECEIVED REPORT FROM DAY SHIFT NURSE. PT IN BED RESTING. PT CONFUSED. RESPIRATIONS EVEN AND UNLABORED TO ROOM AIR. SKIN IS WARM AND DRY. PT WITH WOUNDS ON BOTH FEET, BOTH HIPS AND SACRAL AREA. DRESSING DRY, CLEAN, AND INTACT. PT WITH NO IV ACCESS. NO S/SX OF PAIN OR DISTRESS NOTED. FLACC 0. PT KEPT COMFORTABLE, SAFETY MEASURES IN PLACE. PT AWAITING DISCHARGE. WILL CONTINUE TO MONITOR.
--- NOTE | 2020-07-16 20:10 | NUR ---
VS STABLE. WOUND CARE DONE. PT TURNED TO SIDE. DISCHARGE PAPERS PREPARED, FAMILY CALLED. PT AWAITING DISCHARGE. WILL CONTINUE TO MONITOR.
--- NOTE | 2020-07-16 22:05 | NUR ---
ROUNDS MADE. PT IN BED RESTING. NO S/SX OF PAIN OR DISTRESS NOTED. PT TURNED TO SIDE. PT KEPT COMFORTABLE. SAFETY MEASURES IN PLACE. CALL LIGHT WITHIN REACH. WILL CONTINUE TO MONITOR.
[2020-07-16] MEDS ORDERED: HYDRAGUARD CREAM TP ONE (22:41)
--- NOTE | 2020-07-16 23:05 | NUR ---
FAMILY OUTSIDE. DISCHARGE PAPERS AND BELONGINGS AT HAND. DISCHARGE TEACHINGS GIVEN TO FAMILY. ID BAND REMOVED. PT IN STABLE CONDITION. PT WHEELED OUT VIA VIA WHEELCHAIR.
[2020-07-17] MEDS ORDERED: HYDRAGUARD CREAM TP SCH (01:00)
[2020-07-17] MEDS ORDERED: ALGINATE DRESSING MC SCH (13:00)
[2020-07-17] MEDS ORDERED: THERAHONEY GEL 42.5 GM TP SCH (13:00)
[2020-07-19] MEDS ORDERED: FOAM DRESSING TP SCH (09:00)
== END 2020-07-16 23:05 | disposition home or self-care (01) | DRG 720 ==
LOC: MED 21:29 → MTU 07-13 03:03
PROVIDERS: ADMIT Family Medicine; ATTEND Family Medicine
PROC: 0JB70ZZ Excision of Back Subcutaneous Tissue and Fascia, Open Approach (ICD-10-PCS; principal; 2020-07-14 10:25)
DX: A41.9 Sepsis, unspecified organism (principal); E43 Unspecified severe protein-calorie malnutrition; I96 Gangrene, not elsewhere classified; G20 Parkinson's disease; L89.153 Pressure ulcer of sacral region, stage 3; F02.80 Dementia in other diseases classified elsewhere, unspecified severity, without behavioral disturbance, psychotic disturbance, mood disturbance, and anxiety; E78.5 Hyperlipidemia, unspecified; E86.0 Dehydration; R13.10 Dysphagia, unspecified; M81.0 Age-related osteoporosis without current pathological fracture; Z20.828 Contact with and (suspected) exposure to other viral communicable diseases; Z74.01 Bed confinement status; Z68.23 Body mass index [BMI] 23.0-23.9, adult
CPT/HCPCS: 36415; 71045; 72170; 72192; 80048; 80053; 80202; 80305; 81001; 82150; 82948; 83036; 83605; 83690; 83735; 83880; 84100; 84436; 84439; 84443; 84479; 84484; 85025; 85610; 85730; 87040; 87070; 87081; 92610; 96365; 96375; 99285; J0696; J1956; J2250; J2270; J2405; J3010; J3370; J3490; J7030; J7060

== ENCOUNTER 2020-10-12 14:59 | Emergency (ER) | payer MEDICAID, SELFPAY ==
[~2020-10-12] VITALS: Ht 144.8 cm; Wt 49.5 kg
[~2020-10-12 14:59] MED LIST: AMOX-1000 PO
--- NOTE | 2020-10-12 15:03 | NUR ---
PT W/C ASSISTED TO BED 6.
[2020-10-12 15:09] VITALS: BP 123/85
--- NOTE | 2020-10-12 15:18 | NUR ---
O2 SATURATION 97%, RR 20 ON RA
--- NOTE | 2020-10-12 15:34 | NUR ---
85 YEAR OLD FEMALE BROUGHT IN BY DAUGHTER FOR COMPLAINS OF 3 WOUND NEARS BUTTOCKS REGION. PER DAUGHTER PT DOES NOT REALLY AMBULATE MUCH ANYMORE, AND THAT THINKS WOUNDS ARE GETTING WORSE. PER DAUGHTER PT HAS A WOUND CARE NURSE. ERMD AT BEDSIDE. PT AOX4, BREATHING EVEN AND UNLABORED, SKIN WARM AND DRY. BED IN LOWEST POSITION, LOCKED, BED RAIL UPX1. PMH - PARKINSONS, OSTEOPOROSIS ALLERGIES - NKA
[2020-10-12] MEDS ORDERED: ACET-8386 PO (15:41)
[2020-10-12] MEDS ORDERED: CEPH500C16 PO (15:41)
[2020-10-12 15:57] VITALS: BP 123/85
--- NOTE | 2020-10-12 15:57 | NUR ---
Patient discharged with v/s stable. Written and verbal after care instructions given and explained. Patient alert, oriented and verbalized understanding of instructions. Wheel Chair Assisted with by caregiver. All questions addressed prior to discharge. ID band removed. Patient advised to follow up with PMD. Rx of hydrocodone-acetaminophen 5mg-325mg PO Q6h pRN pain, and keflez 500mg PO QID for 10 days given. Patient educated on indication of medication including possible reaction and side effects. Opportunity to ask questions provided and answered.
== END 2020-10-12 15:57 | disposition home or self-care (01) ==
LOC: MED 14:59
DX: L89.309 Pressure ulcer of unspecified buttock, unspecified stage (principal); R63.0 Anorexia
CPT/HCPCS: 99283

== ENCOUNTER 2020-12-24 21:12 | Inpatient (IN) | payer OTHER, SELFPAY ==
[~2020-12-24] VITALS: Ht 157.5 cm; Wt 44.5 kg
[~2020-12-24 21:12] MED LIST changes: +ACET-8386 PO; +CEPH500C16 PO
[2020-12-24] MEDS ORDERED: NACL 0.9% 1,000 ML IV ONE (21:15)
[2020-12-24 21:21] VITALS: BP 94/69
[2020-12-24] MEDS ORDERED: fentaNYL citrate 0.05 MG/ML VIAL IVP ONE (22:10)
[2020-12-24 22:12] LABS: BASOPHILS % (AUTO) 0.1 % (0.0-2.0); HEMATOCRIT 35.4 % (36-48); HEMOGLOBIN 11.3 g/dL (12.0-16.0); LYMPHOCYTES # (AUTO) 0.6 K/uL (2.5-16.5); MEAN CORPUSCULAR HEMOGLOBIN 29 pg (27-31); MEAN CORPUSCULAR HGB CONC 32 g/dL (33-37); MEAN CORPUSCULAR VOLUME 91.7 fL (80-94); MONOCYTES # (AUTO) 0.4 K/uL (0.8-1.0); NEUTROPHILS # (AUTO) 12.7 K/uL (1.8-7.7); NEUTROPHILS % (AUTO) 92.9 % (42.2-75.2); PLATELET COUNT (AUTO) 73 K/uL (140-450); RED BLOOD CELL COUNT(AUTO) 3.86 MIL/uL (4.20-5.40); RED CELL DISTRIBUTION WIDTH 19.2 % (11.6-13.7); WHITE BLOOD COUNT (AUTO) 13.6 K/uL (4.8-10.8)
[2020-12-24 22:33] LABS: PROTHROMBIN TIME 13.2 secs (10.8-13.4)
[2020-12-24 22:36] LABS: ALBUMIN 1.6 g/dL (3.4-5.0); ANION GAP 14.3 (8-16); ASPARTATE AMINOTRANSFERASE 17 U/L (15-37); CARBON DIOXIDE 22.6 mmol/L (21-32); CHLORIDE 111 mmol/L (98-107); GLUCOSE 123 mg/dL (74-106); LIPASE 16 U/L (73-393); POTASSIUM 4.9 mmol/L (3.5-5.1); SODIUM SERUM 143 mmol/L (136-145); TOTAL BILIRUBIN 0.5 mg/dL (0.0-1.0); UREA NITROGEN, BLOOD 44 mg/dL (7-18)
[2020-12-24 23:39] LABS: APPEARANCE,URINE CLEAR (CLEAR); BILIRUBIN,URINE 1+ (NEGATIVE); BLOOD, URINE NEGATIVE (NEGATIVE); COLOR,URINE YELLOW (YELLOW); LEUKOCYTE ESTERASE ,URINE NEGATIVE (NEGATIVE); NITRITE, URINE NEGATIVE (NEGATIVE); PH,URINE 5.5 (5.0-9.0); UGLUCOSE NEGATIVE (NEGATIVE)
[2020-12-25] MEDS ORDERED: PIPERACILLIN/TAZOBACTAM 3.375 GM in DEXTROSE 5% 50 ML IV ONE (00:05)
[2020-12-25] MEDS ORDERED: NACL 0.9% 1,000 ML IV ONE (00:05)
[2020-12-25] MEDS ORDERED: PIPERACILLIN/TAZOBACTAM 3.375 GM VIAL IV ONE (00:11)
[2020-12-25] MEDS ORDERED: VANCOMYCIN PER PHARMACY MC PRN ×2 (00:40→09:30)
[2020-12-25] MEDS ORDERED: VANCOMYCIN 1,000 MG VIAL ONE (02:53)
[2020-12-25] MEDS: NACL 0.9% 1,000 ML IV SCH ×3 (03:00→20:40)
[2020-12-25] MEDS ORDERED: VANCOMYCIN 1GM/DEXT 5% PREMIX 200 ML IV ONE (03:00)
[2020-12-25] MEDS ORDERED: HYDROcodone/APAP 5/325 MG 1 TAB TAB PO PRN (10:20)
[2020-12-25] MEDS ORDERED: POTASSIUM CHLORIDE 10 MEQ TABER PO PRN (10:20)
[2020-12-25] MEDS ORDERED: MORPHINE SULFATE 2 MG/ML SYR IVP PRN (10:20)
[2020-12-25] MEDS ORDERED: ZOLPIDEM 5 MG TAB PO PRN (10:20)
[2020-12-25] MEDS ORDERED: MAG SULF 2000 MG/WATER PREMIX 50 ML IV PRN (10:20)
[2020-12-25] MEDS ORDERED: ACETAMINOPHEN 325 MG TAB PO PRN (10:20)
[2020-12-25] MEDS ORDERED: DOCUSATE SODIUM 100 MG GELCAP PO PRN (10:20)
[2020-12-25] MEDS ORDERED: ONDANSETRON 4 MG/2 ML VIAL IM/IVP PRN (10:20)
[2020-12-25 11:06] LABS: HEMATOCRIT 31.9 % (36-48); HEMOGLOBIN 10.4 g/dL (12.0-16.0); MEAN CORPUSCULAR HEMOGLOBIN 29 pg (27-31); MEAN CORPUSCULAR HGB CONC 33 g/dL (33-37); MEAN CORPUSCULAR VOLUME 89.9 fL (80-94); PLATELET COUNT (AUTO) 71 K/uL (140-450); RED BLOOD CELL COUNT(AUTO) 3.54 MIL/uL (4.20-5.40); RED CELL DISTRIBUTION WIDTH 18.6 % (11.6-13.7); WHITE BLOOD COUNT (AUTO) 18.8 K/uL (4.8-10.8)
[2020-12-25 11:09] LABS: ANION GAP 11.9 (8-16); CARBON DIOXIDE 21.5 mmol/L (21-32); CHLORIDE 111 mmol/L (98-107); CREATININE 1.7 mg/dL (0.6-1.3); GLUCOSE 121 mg/dL (74-106); POTASSIUM 4.4 mmol/L (3.5-5.1); SODIUM SERUM 140 mmol/L (136-145); UREA NITROGEN, BLOOD 41 mg/dL (7-18)
[2020-12-25 11:13] LABS: PROTHROMBIN TIME 12.7 secs (10.8-13.4)
[2020-12-25 11:23] LABS: CHOL/HDL RATIO 2.4 (1-4.5); MAGNESIUM 1.9 mg/dL (1.8-2.4); PHOSPHORUS 2.9 mg/dL (2.5-4.9); THYROID STIMULATING HORMONE 3.67 uIU/mL (0.34-3.74)
[2020-12-25] MEDS: PIPERACILLIN/TAZOBACTAM 2.25 GM in DEXTROSE 5% 50 ML IV SCH ×2 (12:11→21:13)
[2020-12-25 12:29] LABS: LYMPHOCYTES % (MANUAL) 2 % (20-46); MONOCYTES % (MANUAL) 3 % (5-12)
[2020-12-25 16:00] VITALS: BP 108/43
[2020-12-25 20:00] VITALS: BP 99/60
[2020-12-25] MEDS ORDERED: NACL 0.9% 500 ML IV ONE (21:25)
[2020-12-26] VITALS (10 sets, daily range): BP systolic 83–129; BP diastolic 30–79
[2020-12-26] MEDS ORDERED: NACL 0.9% 1,000 ML IV ONE ×2 (01:20→17:15)
[2020-12-26] MEDS: PIPERACILLIN/TAZOBACTAM 2.25 GM in DEXTROSE 5% 50 ML IV SCH ×3 (05:39→21:01)
[2020-12-26] MEDS: NACL 0.9% 1,000 ML IV SCH ×2 (05:39→16:55)
[2020-12-26 06:27] LABS: BASOPHILS % (AUTO) 0.1 % (0.0-2.0); HEMATOCRIT 32.2 % (36-48); HEMOGLOBIN 10.2 g/dL (12.0-16.0); MEAN CORPUSCULAR HEMOGLOBIN 29 pg (27-31); MEAN CORPUSCULAR HGB CONC 32 g/dL (33-37); MEAN CORPUSCULAR VOLUME 92.1 fL (80-94); MONOCYTES # (AUTO) 0.5 K/uL (0.8-1.0); MONOCYTES % (AUTO) 3.1 % (1.7-9.3); NEUTROPHILS # (AUTO) 15.2 K/uL (1.8-7.7); NEUTROPHILS % (AUTO) 90.8 % (42.2-75.2); PLATELET COUNT (AUTO) 79 K/uL (140-450); RED CELL DISTRIBUTION WIDTH 18.9 % (11.6-13.7); WHITE BLOOD COUNT (AUTO) 16.7 K/uL (4.8-10.8)
[2020-12-26 07:02] LABS: ANION GAP 19.6 (8-16); CARBON DIOXIDE 17.9 mmol/L (21-32); CHLORIDE 115 mmol/L (98-107); CREATININE 1.6 mg/dL (0.6-1.3); GLUCOSE 68 mg/dL (74-106); POTASSIUM 4.5 mmol/L (3.5-5.1); SODIUM SERUM 148 mmol/L (136-145); UREA NITROGEN, BLOOD 35 mg/dL (7-18)
[2020-12-26 07:08] LABS: FOLIC ACID 4.2 ng/mL (>3.0); T4 (THYROXINE) 4.4 ug/dL (4.5-12.0)
[2020-12-26] MEDS ORDERED: BUPIVACAINE-MPF 0.5% 30 ML VIAL INJ ONE ×2 (07:25→07:26)
[2020-12-26] MEDS ORDERED: LIDOCAINE 1% 500 MG/50 ML VIAL ONE (07:25)
[2020-12-26] MEDS ORDERED: HYDROGEN PEROXIDE 3% 240 ML BTL TP ONE (07:39)
[2020-12-26 08:02] LABS: MAGNESIUM 1.8 mg/dL (1.8-2.4); PHOSPHORUS 2.9 mg/dL (2.5-4.9)
[2020-12-26] MEDS ORDERED: fentaNYL citrate 0.05 MG/ML VIAL ONE (15:17)
[2020-12-26] MEDS ORDERED: MIDAZOLAM 5 MG/5 ML VIAL ONE (15:18)
[2020-12-26] MEDS: MIDAZOLAM 2 MG/2 ML VIAL IVP ONE ×2 (15:41→17:16)
[2020-12-26] MEDS: fentaNYL citrate 0.05 MG/ML VIAL IVP ONE ×2 (15:42→17:16)
[2020-12-26] MEDS ORDERED: LACTULOSE 20 GM/30 ML UDC PO SCH (17:00)
[2020-12-26] MEDS ORDERED: FAMOTIDINE 20 MG TAB PO SCH (21:00)
[2020-12-27] VITALS (28 sets, daily range): BP systolic 74–129; BP diastolic 36–74
[2020-12-27] MEDS: PIPERACILLIN/TAZOBACTAM 2.25 GM in DEXTROSE 5% 50 ML IV SCH ×3 (05:50→20:18)
[2020-12-27 06:53] LABS: HEMATOCRIT 30.3 % (36-48); HEMOGLOBIN 9.8 g/dL (12.0-16.0); MEAN CORPUSCULAR HEMOGLOBIN 30 pg (27-31); MEAN CORPUSCULAR HGB CONC 32 g/dL (33-37); PLATELET COUNT (AUTO) 93 K/uL (140-450); RED BLOOD CELL COUNT(AUTO) 3.29 MIL/uL (4.20-5.40); RED CELL DISTRIBUTION WIDTH 19.1 % (11.6-13.7); WHITE BLOOD COUNT (AUTO) 20.3 K/uL (4.8-10.8)
[2020-12-27 06:54] LABS: EOSINOPHILS % (MANUAL) 2 % (0-4); LYMPHOCYTES % (MANUAL) 4 % (20-46); MONOCYTES % (MANUAL) 4 % (5-12)
[2020-12-27 07:01] LABS: ANION GAP 16.2 (8-16); CARBON DIOXIDE 18.7 mmol/L (21-32); CHLORIDE 115 mmol/L (98-107); CREATININE 1.5 mg/dL (0.6-1.3); GLUCOSE 128 mg/dL (74-106); POTASSIUM 3.9 mmol/L (3.5-5.1); SODIUM SERUM 146 mmol/L (136-145); UREA NITROGEN, BLOOD 33 mg/dL (7-18)
[2020-12-27 07:21] LABS: MAGNESIUM 1.6 mg/dL (1.8-2.4)
[2020-12-27] MEDS: FAMOTIDINE 20 MG TAB PO SCH (08:40)
[2020-12-27] MEDS: LACTULOSE 20 GM/30 ML UDC PO SCH (08:40)
[2020-12-27] MEDS ORDERED: LACTULOSE 20 GM/30 ML UDC PO SCH (09:00)
[2020-12-27] MEDS ORDERED: VANCOMYCIN 750 MG in DEXTROSE 5% 250 ML IV SCH (09:30)
[2020-12-27] MEDS: NACL 0.9% 1,000 ML IV SCH (09:31)
[2020-12-27] MEDS ORDERED: CALCIUM GLUCONATE 10% 1,000 MG in NACL 0.9% 50 ML IV SCH (11:00)
[2020-12-27] MEDS: DEXT 5% / NACL 0.45% 1,000 ML IV SCH ×2 (11:17→23:53)
[2020-12-27] MEDS ORDERED: NACL 0.45% 1,000 ML IV SCH ×2 (12:00→13:00)
[2020-12-27] MEDS: DOPamine 400 MG/D5W PREMIX 250 ML IV PRN (15:57)
[2020-12-27] MEDS ORDERED: THERAHONEY GEL 42.5 GM TP PRN (21:50)
[2020-12-28] VITALS (21 sets, daily range): BP systolic 93–141; BP diastolic 48–73
[2020-12-28] MEDS: LORazepam 2 MG/ML VIAL IM/IVP PRN (01:10)
[2020-12-28] MEDS: PIPERACILLIN/TAZOBACTAM 2.25 GM in DEXTROSE 5% 50 ML IV SCH ×3 (05:26→20:04)
[2020-12-28 05:32] LABS: ANION GAP 17.4 (8-16); CARBON DIOXIDE 16.4 mmol/L (21-32); CHLORIDE 109 mmol/L (98-107); CREATININE 1.5 mg/dL (0.6-1.3); GLUCOSE 143 mg/dL (74-106); SODIUM SERUM 140 mmol/L (136-145); UREA NITROGEN, BLOOD 31 mg/dL (7-18)
[2020-12-28 05:37] LABS: MAGNESIUM 2.1 mg/dL (1.8-2.4); PHOSPHORUS 2.1 mg/dL (2.5-4.9)
[2020-12-28 05:53] LABS: POTASSIUM 2.8 mmol/L (3.5-5.1)
[2020-12-28 06:22] LABS: BASOPHILS % (AUTO) 0.1 % (0.0-2.0); EOSINOPHILS % (AUTO) 0.1 % (0.0-4.0); HEMATOCRIT 31.9 % (36-48); HEMOGLOBIN 10.2 g/dL (12.0-16.0); LYMPHOCYTES # (AUTO) 0.7 K/uL (2.5-16.5); LYMPHOCYTES % (AUTO) 4.3 % (20.5-51.1); MEAN CORPUSCULAR HEMOGLOBIN 29 pg (27-31); MEAN CORPUSCULAR HGB CONC 32 g/dL (33-37); MEAN CORPUSCULAR VOLUME 91.5 fL (80-94); MONOCYTES # (AUTO) 0.6 K/uL (0.8-1.0); MONOCYTES % (AUTO) 3.6 % (1.7-9.3); NEUTROPHILS # (AUTO) 15.9 K/uL (1.8-7.7); NEUTROPHILS % (AUTO) 91.9 % (42.2-75.2); RED BLOOD CELL COUNT(AUTO) 3.48 MIL/uL (4.20-5.40); RED CELL DISTRIBUTION WIDTH 19.3 % (11.6-13.7); WHITE BLOOD COUNT (AUTO) 17.3 K/uL (4.8-10.8)
[2020-12-28 06:46] LABS: PLATELET COUNT (AUTO) 60 K/uL (140-450)
[2020-12-28] MEDS ORDERED: POTASSIUM CHLORIDE 40 MEQ, LIDOCAINE MPF 1% 25 MG in NACL 0.9% 250 ML IV PRN (07:10)
[2020-12-28] MEDS: FAMOTIDINE 20 MG TAB PO SCH (08:25)
[2020-12-28] MEDS: LACTULOSE 20 GM/30 ML UDC PO SCH (08:25)
[2020-12-28] MEDS ORDERED: POTASSIUM CHLORIDE 40 MEQ, LIDOCAINE MPF 1% 25 MG in NACL 0.9% 250 ML IV SCH (08:30)
[2020-12-28] MEDS: THERAHONEY GEL 42.5 GM TP SCH (08:40)
[2020-12-28] MEDS: DOPamine 400 MG/D5W PREMIX 250 ML IV PRN (09:00)
[2020-12-28] MEDS ORDERED: VANCOMYCIN 750 MG in DEXTROSE 5% 250 ML IV SCH (13:00)
[2020-12-28] MEDS: DEXT 5% / NACL 0.45% 1,000 ML IV SCH (15:42)
[2020-12-28] MEDS ORDERED: POTASSIUM CHLORIDE 20% 40 MEQ/15 ML UDC GT ONE (18:15)
[2020-12-29] VITALS (19 sets, daily range): BP systolic 72–112; BP diastolic 44–70
[2020-12-29] MEDS: LORazepam 2 MG/ML VIAL IM/IVP PRN (00:54)
[2020-12-29] MEDS ORDERED: HYDRAGUARD CREAM TP SCH (01:00)
[2020-12-29] MEDS ORDERED: PHENYLEPHRINE 10 MG/ML VIAL ONE (02:18)
[2020-12-29] MEDS: PHENYLEPHRINE 40 MG in NACL 0.9% 250 ML IV PRN ×2 (02:35→08:17)
[2020-12-29] MEDS: ALBUTEROL SULFATE/IPRATROPIU 3 ML SOL IH SCH ×2 (03:04→06:58)
[2020-12-29] MEDS: PIPERACILLIN/TAZOBACTAM 2.25 GM in DEXTROSE 5% 50 ML IV SCH (05:11)
[2020-12-29] MEDS: DEXT 5% / NACL 0.45% 1,000 ML IV SCH (05:22)
[2020-12-29] MEDS ORDERED: NACL 0.9% 1,000 ML IV SCH (05:30)
[2020-12-29 06:15] LABS: MEAN CORPUSCULAR HEMOGLOBIN 29 pg (27-31); MEAN CORPUSCULAR HGB CONC 31 g/dL (33-37); MEAN CORPUSCULAR VOLUME 93.2 fL (80-94); RED BLOOD CELL COUNT(AUTO) 3.11 MIL/uL (4.20-5.40); RED CELL DISTRIBUTION WIDTH 20.4 % (11.6-13.7); WHITE BLOOD COUNT (AUTO) 15.8 K/uL (4.8-10.8)
[2020-12-29 06:51] LABS: PLATELET COUNT (AUTO) 50 K/uL (140-450)
[2020-12-29 06:52] LABS: LYMPHOCYTES % (MANUAL) 4 % (20-46); MONOCYTES % (MANUAL) 4 % (5-12)
[2020-12-29 06:57] LABS: ANION GAP 14.6 (8-16); CARBON DIOXIDE 16.1 mmol/L (21-32); CHLORIDE 110 mmol/L (98-107); CREATININE 1.4 mg/dL (0.6-1.3); GLUCOSE 139 mg/dL (74-106); POTASSIUM 3.7 mmol/L (3.5-5.1); SODIUM SERUM 137 mmol/L (136-145); UREA NITROGEN, BLOOD 41 mg/dL (7-18)
[2020-12-29 07:27] LABS: MAGNESIUM 1.7 mg/dL (1.8-2.4)
[2020-12-29 07:38] LABS: PHOSPHORUS 0.8 mg/dL (2.5-4.9)
[2020-12-29] MEDS ORDERED: ASCORBIC ACID 500 MG/5 ML ORASYR GT SCH (09:00)
[2020-12-29] MEDS ORDERED: MULTIVITAMIN/MINERALS 1 TAB GT SCH (09:00)
[2020-12-29] MEDS: LACTULOSE 20 GM/30 ML UDC PO SCH (09:55)
[2020-12-29] MEDS: FAMOTIDINE 20 MG TAB PO SCH (09:55)
[2020-12-29] MEDS: THERAHONEY GEL 42.5 GM TP SCH (09:56)
[2020-12-29] MEDS ORDERED: POTASSIUM PHOSPHATE 30 MM in NACL 0.9% 500 ML IV SCH (10:00)
[2020-12-29] MEDS ORDERED: MORPHINE SULFATE 100 MG in NACL 0.9% 90 ML IV PRN (12:20)
== END 2020-12-29 15:09 | DRG 853 ==
LOC: MED 21:12 → MTU 12-25 00:44 → MIC 12-26 18:19
PROC: 0JBL0ZZ Excision of Right Upper Leg Subcutaneous Tissue and Fascia, Open Approach (ICD-10-PCS; 2020-12-26)
PROC: 0JB70ZZ Excision of Back Subcutaneous Tissue and Fascia, Open Approach (ICD-10-PCS; 2020-12-26)
PROC: 0DH63UZ Insertion of Feeding Device into Stomach, Percutaneous Approach (ICD-10-PCS; 2020-12-26)
PROC: 0JBM0ZZ Excision of Left Upper Leg Subcutaneous Tissue and Fascia, Open Approach (ICD-10-PCS; principal; 2020-12-26 07:30)
DX: A41.9 Sepsis, unspecified organism (principal); E43 Unspecified severe protein-calorie malnutrition; G93.41 Metabolic encephalopathy; N17.0 Acute kidney failure with tubular necrosis; R65.21 Severe sepsis with septic shock; I96 Gangrene, not elsewhere classified; N17.9 Acute kidney failure, unspecified; E87.1 Hypo-osmolality and hyponatremia; Z68.1 Body mass index [BMI] 19.9 or less, adult; E86.0 Dehydration; F02.80 Dementia in other diseases classified elsewhere, unspecified severity, without behavioral disturbance, psychotic disturbance, mood disturbance, and anxiety; G20 Parkinson's disease; M81.0 Age-related osteoporosis without current pathological fracture; R62.7 Adult failure to thrive; D64.9 Anemia, unspecified; R13.10 Dysphagia, unspecified; E83.42 Hypomagnesemia; L89.329 Pressure ulcer of left buttock, unspecified stage; E87.6 Hypokalemia; E83.39 Other disorders of phosphorus metabolism; I46.9 Cardiac arrest, cause unspecified; Z66 Do not resuscitate; Z20.822 Contact with and (suspected) exposure to COVID-19
CPT/HCPCS: 36415; 36600; 70450; 71045; 80048; 80053; 80202; 81003; 82140; 82607; 82728; 82746; 82803; 83036; 83540; 83605; 83690; 83735; 83880; 84100; 84134; 84436; 84443; 84484; 85025; 85045; 85610; 85730; 87040; 87070; 87081; 87086; 87186; 88304; 92610; 93005; 94640; 94660; 96361; 96365; 96367; 96374; 99291; J0610; J0690; J1265; J2001; J2060; J2250; J2270; J2370; J2543; J3010; J3370; J3475; J3480; J3490; J7030; J7060